=== PATIENT | male | born 1950 | race Caucasian/White ===

== ENCOUNTER 2024-03-16 06:16 | Day surgery (SDC) | payer MEDICARE, SELFPAY ==
[2024-03-10 11:45] VITALS: BMI 23.7
[2024-03-16 06:42] VITALS: BP 164/103; PULSE 75; RESP 18; TEMP 36.3; O2SAT 98
[2024-03-16] MEDS: LACTATED RINGERS 1000ML 1,000 ML 25 ML IV (06:54)
--- NOTE | 2024-03-16 07:24 | EXP.ANES.CKL ---
[facility] Disclaimer: The information contained in this section may have been updated after the patient was seen, as this information can be updated by other users. Medical History No significant past medical history No significant past medical history Surgical History (Updated 03/16/24 @ 06:51 by Ila Castro RN) H/O hemorrhoidectomy Family History Other No significant family history Social History (Updated 03/16/24 @ 06:51 by Ila Castro RN) Smoking Status: Never smoker alcohol intake: never substance use type: denies use current occupational status: retired Travel in the last 8 weeks: Outside the [facility] caffeine: Yes [facility] Anesthesia Checklist Patient Identification Patient Identification: Arm Band Structural Data Admitted From: Home Planned Operative Procedure/s: Colonoscopy Consent for Planned Operative Procedure(s) Verified: Yes Verified Documents: Surgical Consent and History and Physical NPO Status Verified Time NPO: 00:00 Additional verifications Anesthesia Reactions: No Airway Assessment Mallampati Score:: Class II C-Spine Mobility Assessed: Yes TMJ Mobility Assessed: Yes Dentition: Good Dentition Neurological Assessment Level of Consciousness: Awake, Alert and Appropriate Anesthesia Plan Anesthesia Risk discussed: Yes Anesthesia Plan: Verified ASA Class: II Anesthesia Type: MAC
--- NOTE | 2024-03-16 07:51 | P.PCN_ITS ---
Procedure: Date: 03/16/24 Patient Date of :: 1950 Procedure Performed:: Colonoscopy Indications:: Screening Performing Provider:: Asa Connors MD Referring Provider:: . Sedation:: Monitored anesthesia care Procedure:: After informed consent was obtained the patient was taken to the endoscopy suite. Sedation ensued after the patient was transferred to the left lateral decubitus position. Pulse, blood pressure, and oxygen saturation were monitored throughout the procedure. Digital rectal exam revealed no significant abnormality. The colonoscope was placed in position. The entire colon was eval uated. The colonoscope was carefully removed and the patient was transferred to recovery in stable condition. Please see findings and specimens below for detail. Findings:: Bowel preparation relatively fair Moderate spasticity/tortuosity Mild scattered sigmoid diverticulosis Specimens:: None Recommendations:: Repeat colonoscopy in approximately 5 years secondary to spasticity/tortuosity Complications:: No immediate Estimated blood obtained (mL): 0 Colonoscopy Component Colonoscopy Component Was a colonoscopy performed during today's procedure?: Yes Recommended follow up colonoscopy of at least 10 years?: No If no, follow up colonoscopy recommended in ___ years?: (See above) Reason for not recommending >/= 10 yr follow-up interval?: (See above)
[2024-03-16 07:58] VITALS: O2SAT 96
[2024-03-16 08:30] VITALS: BP 137/81; PULSE 72; RESP 18; TEMP 36.2; O2SAT 95
[2024-03-16 08:40] VITALS: BP 131/69; PULSE 73; RESP 18; O2SAT 93
[2024-03-16 08:50] VITALS: BP 125/84; PULSE 69; RESP 18; O2SAT 94
[2024-03-16 09:05] VITALS: BP 136/91; PULSE 76; RESP 18; O2SAT 97
== END 2024-03-16 09:05 | disposition home or self-care (01) ==
PROVIDERS: PCP Family Medicine; Visit Provider Surgery
PROC: 0DJD8ZZ Inspection of Lower Intestinal Tract, Via Natural or Artificial Opening Endoscopic (ICD-10-PCS; CPT G0121; principal; 2024-03-16 07:30)
DX: Z12.11 Encounter for screening for malignant neoplasm of colon (principal); K57.30 Diverticulosis of large intestine without perforation or abscess without bleeding
CPT/HCPCS: G0121; J7120

== ENCOUNTER 2025-01-05 14:57 | Outpatient (CLI) | payer MEDICARE, SELFPAY ==
--- OUTSIDE RECORDS SUMMARY | 2025-01-05 15:00 | XMS_ITS | Clinical Summary ---
Author Organization [facility] Address [address] [place] [id number] Care Team Providers Care System Controller Name Role Phone Arley Adkins MD Primary Care Provider [phone] Allergies No known active allergies Medications oxyCODONE-acetam inophen (PERCOCET) 5-325 MG per tablet Take 1 tablet by mouth Every 8 (Eight) Hours As Needed (pain). 15 tablet 02/10/2017 Active Social History Tobacco Use Types Packs/Day Years Used Date Smoking Tobacco: Never Tobacco Cessation:Counseling Given: No Alcohol Use Standard Drinks/Week Comments No 0 (1 standard drink = 0.6 oz pur e alcohol) Abuse Screen Answer Date Recorded Unsafe at Home or Work/School Not on file Feels Threatened by Someone? Not on file 01/2023 Does Anyone Keep You from Co ntacting Others or Doint Things Outside the Home? Not on file 02/24/2023 Physical Sign of Abuse Present Not on file 1 Housing Stability Answer Date Recorded Current Living Arrangements Not on file 01/2023 Potentially Unsafe Housing Conditions Not on ramses e 02/24/2023 Family and Community Support Answer Trey e Recorded Help with Day-to-Day Activities Not on file 02/24/2023 Lonely or Isolated Not on file 02/24/2023 Employment Answer Date Recorded Do you want help finding or keeping work or a margarette b? Not on file 02/24/2023 Disabilities Answer Date Recorded Concentrating, Remembering, or Making Decisions Difficulty Not on file 02/24/2023 Doing Errands Independently Difficulty Not on fi le 02/24/2023 Education Answer Date Recorded Help with school or training? Not on file Preferred Language Not on file 02/24/2023 Sex and Gender Information Value Date Recorded Sex Assigned at Not on file Legal Sex Male 11:52 AM EDT Gender Identity Not on file Sexual Orientation Not on file Last Filed Vital Signs Vital Sign Reading Time Taken Comments Blood Pressure 148/86 02/10/2017 2:00 PM EDT Pulse 74 02/10/2017 2:00 PM EDT Temperature 36.8 C (98.2 F) 02/10/2017 2:00 PM EDT Respiratory Rate 16 02/10/2017 2:00 PM EDT Oxygen Saturation 96% 02/10/2017 2:00 PM EDT Inhaled Oxygen Concentration - - Weight 83.9 kg (185 lb) 02/10/2017 9:35 AM EDT Height 182.9 cm (6') 02/10/2017 9:35 AM EDT Body Mass Index 25.09 02/10/2017 9:35 AM EDT Plan of Treatment Health Maintenance Due Date Last Done Comments TDAP/TD VACCINES (1 - Tdap) 10/24/1971 COLOGUARD 1997 COLON CANCER SCREENING 5 YEAR SIGMOIDOSCOPY 1997 COLONOSCOPY 1997 COLOR[address]AL CANCER SCREENING 1997 CT COLONOGRAPHY 1997 FECAL OCCULT BLOOD TEST 1997 FIT Testing (1 year) 1997 Pneumococcal Vaccine 50+ (1 of 1 - PCV) 2002 ZOSTER VACCINE (1 of 2) 2002 ANNUAL PHYSICAL 02/10/2017 HEPATITIS C SCREENING 02/10/2017 COVID-19 Vaccine ( season) 2024 INFLUENZA VACCINE 02/16/2025 AAA SCREEN ONCE Completed 02/10/2017 Procedures Procedure Name Priority Date/Time Associated Diagnosis Comments CT ABDOMEN PELVIS W CONTRAST STAT 02/10/2017 12:09 PM EDT from Last 3 Months or Most Recently Relevant to Health Maintenance Results * CT Abdomen Pelvis With Contrast (02/10/2017 12:09 PM EDT) Anatomical Region Laterality Modality Abdomen, Pelvis N/A Computed Tomogra phy 02/10/2017 1:19 PM EDT Impressions 02/10/2017 4:46 PM EDT Small right pleural effusion with nondisplaced fracture seen of the right posterior lateral eighth rib. No acute intraabdominal or pelvic abnormality is identified. E: 02/10/2017 This report was finalized on 02/10/2017 4:[address] Laury Irvin MD. Narrative 02/10/2017 4:46 PM EDT EXAMINATION: CT ABDOMEN AND PELVIS W CONTRAST- INDICATION: Right lower back pain, blunt abdominal trauma. TECHNIQUE: Multiple axial CT imaging was obtained of the abdomen and pelvis following the administration of intravenous contrast. The radiation dose reduction device was turned on for each scan per the ALARA (As Low as Reasonably Achievable) protocol. COMPARISON: None. FINDINGS: There is a tiny right pleural effusion. There is evidence of a nondisplaced fracture seen of the right posterior lateral eighth rib. No additional fracture is identified. The bony structures reveal degenerative changes identified within the spine. Pedicles are intact. No loss of height. Imaging of the pelvis reveals minimal degenerative changes seen within the sacroiliac joints bilaterally. The liver is homogeneous in appearance. Spleen is unremarkable. Kidneys and adrenal glands are within normal limits. No stones in the gallbladder. The pancreas is homogeneous in appearance. No abdominal or retroperitoneal lymphadenopathy. No free fluid or free air. No abnormal mass or fluid collection is identified. Stool is seen scattered throughout the colon. The appendix is radiographically normal in appearance. Diverticulosis of the colon without evidence of diverticulitis. PELVIS: The pelvic organs are unremarkable. The pelvic portion of the gastrointestinal tract is within normal limits. Diverticulosis of the colon without evidence of diverticulitis. No pelvic adenopathy. No abnormal mass or fluid collection is identified. Bony structures reveal degenerative changes seen within the spine and pelvis. Procedure Note Laury Irvin MD - 02/10/2017 EXAMINATION: CT ABDOMEN AND PELVIS W CONTRAST- INDICATION: Right lower back pain, blunt abdominal trauma. TECHNIQUE: Multiple axial CT imaging was obtained of the abdomen and pelvis following the administration of intravenous contrast. The radiation dose reduction device was turned on for each scan per the ALARA (As Low as Reasonably Achievable) protocol. COMPARISON: None. FINDINGS: There is a tiny right pleural effusion. There is evidence of a nondisplaced fracture seen of the right posterior lateral eighth rib. No additional fracture is identified. The bony structures reveal degenerative changes identified within the spine. Pedicles are intact. No loss of height. Imaging of the pelvis reveals minimal degenerative changes seen within the sacroiliac joints bilaterally. The liver is homogeneous in appearance. Spleen is unremarkable. Kidneys and adrenal glands are within normal limits. No stones in the gallbladder. The pancreas is homogeneous in appearance. No abdominal or retroperitoneal lymphadenopathy. No free fluid or free air. No abnormal mass or fluid collection is identified. Stool is seen scattered throughout the colon. The appendix is radiographically normal in appearance. Diverticulosis of the colon without evidence of diverticulitis. PELVIS: The pelvic organs are unremarkable. The pelvic portion of the gastrointestinal tract is within normal limits. Diverticulosis of the colon without evidence of diverticulitis. No pelvic adenopathy. No abnormal mass or fluid collection is identified. Bony structures reveal degenerative changes seen within the spine and pelvis. IMPRESSION: Small right pleural effusion with nondisplaced fracture seen of the right posterior lateral eighth rib. No acute intraabdominal or pelvic abnormality is identified. E: 02/10/2017 This report was finalized on 02/10/2017 4:[address] Laury Irvin MD. [facility] IM[facility] CT ORDERABLES Final Resu lt from Last 3 Months or Most Recently Relevant to Health Maintenance Insurance PPO Care Teams System Controller Relationship Specialty Start Date End Date Arley Adkins MD [address] [place] [address] PCP - General Family Medicine 02/10/17
--- NOTE | 2025-01-05 15:01 | XR_ITS ---
PROCEDURE INFORMATION: Exam: XR Right Hip Exam date and time: 01/05/2025 3:02 PM Age: 74 years old Clinical indication: Hip pain; Right hip; Additional info: Pain and weakness 2 yrs TECHNIQUE: Imaging protocol: Radiologic exam of the right hip. Views: 2 or 3 views hip with pelvis when performed. COMPARISON: No relevant prior studies available. FINDINGS: Bones/joints: No acute fracture. Mild degenerative changes of RIGHT hip joint. No dislocation. Soft tissues: Unremarkable. IMPRESSION: No fracture. If hip pain persists, consider MRI to exclude occult fracture/internal derangement.
== END 2025-01-05 23:59 | disposition home or self-care (01) ==
LOC: RAD 14:58
PROVIDERS: PCP Family Medicine; Visit Provider Nurse Practitioner Family
DX: M25.551 Pain in right hip (principal)
CPT/HCPCS: 73502

== ENCOUNTER 2025-01-21 13:37 | Outpatient (CLI) | payer MEDICARE, SELFPAY ==
--- NOTE | 2025-01-21 | XR_ITS ---
FINAL REPORT CLINICAL HISTORY: MRI CLEARANCE HX OF METAL IN BOTH EYES FINDINGS: ORBITS Look up and look down views were obtained. There is no metallic foreign body projected in the orbits. There is a punctate metallic density projected in the left frontal sinus. IMPRESSION: No metallic foreign body in the orbits. Punctate metallic density left frontal sinus. Reviewed, Interpreted and Dictated by Lola Hutchinson MD Transcribed by Mica Burns Authenticated and [facility]
--- OUTSIDE RECORDS SUMMARY | 2025-01-21 13:41 | XMS_ITS | Clinical Summary ---
Author Organization [facility] Address [address] [place] [id number] Care Team Providers Care Shingle Trimmer Name Role Phone Arley Adkins MD Primary Care Provider [phone] Allergies No known active allergies Medications oxyCODONE-acetam [...] C SCREENING 02/10/2017 COVID-19 Vaccine ( season) 2025 INFLUENZA VACCINE 02/16/2025 AAA SCREEN ONCE Completed [...] to Health Maintenance Insurance PPO Care Teams Shingle Trimmer Relationship Specialty Start Date End Date Arley Adkins MD [address] [place] [address] PCP - General Family Medicine 02/10/17
--- OUTSIDE RECORDS SUMMARY | 2025-01-21 13:41 | XMS_ITS ---
Author Organization Unknown [facility] Start Date Provider Encounter for Check-up [id number] LURDES Adkins
== END 2025-01-21 23:59 | disposition home or self-care (01) ==
LOC: RAD 13:38
PROVIDERS: PCP Family Medicine; Visit Provider Family Medicine
DX: R93.0 Abnormal findings on diagnostic imaging of skull and head, not elsewhere classified (principal); Z04.89 Encounter for examination and observation for other specified reasons
CPT/HCPCS: 70200